=== PATIENT | female | born 1965 | race Caucasian/White ===

== ENCOUNTER → 2016-12-24 | Outpatient (CLI) | payer MEDICARE ==
--- NOTE | 2016-12-24 16:43 | RAD ---
Chest, 2 views, 12/24/2016: History: Shortness of breath No previous chest radiographs are available at this time for comparison purposes. There is a severe thoracolumbar kyphoscoliosis deforming the thoracic cage. A left-sided transvenous pacemaker is in place with 2 leads extending into the right heart. The heart appears to be within normal limits in size. The pulmonary vascularity is normal. There is an opacity in the left lower chest obscuring the hemidiaphragm on the frontal view. The patient's chest to form a and kyphosis may be contributing to this appearance. The lateral view suggests the presence of a lingular opacity, although a prominent epicardial fat pad may be contributing to this appearance. No pleural fluid is seen. IMPRESSION: 1. Chest deformity due to a marked thoracolumbar kyphoscoliosis. 2. Probable lingular infiltrate on the left. CT scanning would better define the findings, if clinically indicated.
[2016-12-25 00:57] LABS: HCO3 ABG 35 mmol/L (21-28); PCO2 ABG 58 mmHg (35-46); PO2 ABG 176 mmHg (75-108); SAT O2 ABG 99 % (92-99)
[2016-12-25 07:40] LABS: FIO2 ABG 44
== END | disposition home or self-care (01) ==
LOC: RT 14:30
PROVIDERS: ATTEND Internal Medicine Pulmonary Disease
DX: M95.4 Acquired deformity of chest and rib (principal); R06.02 Shortness of breath; Z95.0 Presence of cardiac pacemaker
CPT/HCPCS: 36600; 71020; 82805; 94620

== ENCOUNTER 2017-09-01 13:57 | Emergency (ER) | payer MEDICARE, OTHER | END 2017-09-01 15:45 | disposition home or self-care (01) | LOC: ER 13:57 | DX: Z43.0 Encounter for attention to tracheostomy (principal); Z88.0 Allergy status to penicillin | CPT/HCPCS: 31502; 99284 ==

== ENCOUNTER 2017-10-04 23:00 | Emergency (ER) | payer MEDICARE, OTHER ==
[2017-10-05 01:30] VITALS: BP 141/61
[2017-10-05] MEDS ORDERED: AZIT250T6 PO (02:25)
[2017-10-05 02:26] LABS: CLARITY,URINE CLEAR; COLOR,URINE YELLOW
[2017-10-05 02:27] LABS: AMORPHOUS SEDIMENT,UR PRESENT /HPF; BACTERIA,URINE 0 /HPF (0-FEW); BILIRUBIN,URINE NEGATIVE (NEG); NITRITE,URINE NEGATIVE (NEG); PH,URINE 5.5; PROTEIN,URINE NEGATIVE (NEG-TRACE); RED BLOOD COUNT 3.97 x10^6/uL (3.50-5.40); SQUAMOUS EPITHELIAL CELL,UR FEW /LPF; UROBILINOGEN,URINE 0.2 mg/dL (0.2 mg/dL)
[2017-10-05 02:28] LABS: BASO % 0 % (0-3); EOS # 0.3 x10^3/uL (0.0-0.7); EOS % 3 % (0-3); HEMATOCRIT 33.3 % (36.0-47.0); HEMOGLOBIN 10.7 g/dL (12.0-15.5); LYMPH # 1.2 x10^3/uL (1.0-4.8); LYMPH % 12 % (24-48); MEAN CORPUSCULAR HEMOGLOBIN 27 pg (25-35); MEAN CORPUSCULAR HGB CONC 32 g/dL (31-37); MEAN CORPUSCULAR VOLUME 84 fL (79-100); MONO # 1.1 x10^3/uL (0.0-1.1); MONO % 11 % (0-9); NEUT # 7.5 x10^3uL (1.8-7.7); NEUT % 75 % (31-73); PLATELET COUNT 241 x10^3/uL (140-400); RED CELL DISTRIBUTION WIDTH 16.7 % (11.5-14.5)
--- NOTE | 2017-10-05 03:55 | PHYS DOC ---
Past Medical History Past Medical History: Other Additional Past Medical Histor: trachea Past Surgical History: , Pacemaker, Other Additional Past Surgical Histo: tracheostomy, skin graft, Alcohol Use: Rarely Drug Use: None Adult General Chief Complaint Chief Complaint: SHORTNESS OF BREATH [facility] HPI Patient is a 52 year old female who presents with some change in mental status. The patient has a tracheostomy at baseline. She uses oxygen at home and does have a concentrator. The patient had an episode earlier today with the family perceive that she was not answering questions appropriately. They checked her equipment and found that her oxygen concentrator had been set at a lower setting than it was supposed to. They do have concerns that the patient was hypoxic. They contacted a nurse advice line and they were recommended to come to the emergency department. On arrival to the ER, the patient has no complaints. Her oxygen level is over 95% on her baseline oxygen delivery. She does endorse some vague complaints of chills over the last 48 hours. No cough. No urinary symptoms. She has otherwise been at baseline health. They're primarily concerned that her oxygen level was too low at home. Review of Systems Review of Systems Constitutional: Denies fever or chills Eyes: Denies change in visual acuity, redness, or eye pain HENT: Denies nasal congestion or sore throat Respiratory: Denies cough or shortness of breath Cardiovascular: No additional information not addressed in HPI GI: Denies abdominal pain, nausea, vomiting, bloody stools or diarrhea : Denies dysuria or hematuria Musculoskeletal: Denies back pain or joint pain Integument: Denies rash or skin lesions Neurologic: Denies headache, focal weakness or sensory changes Endocrine: Denies polyuria or polydipsia All other systems were reviewed and found to be within normal limits, except as documented in this note. Allergies Allergies Allergies Coded Allergies Type Severity Reaction Last Updated Verified Penicillins Allergy Mild hives 09/01/17 Yes Physical Exam Physical Exam Constitutional: Well developed, well nourished, chronically ill-appearing female but in no distress HENT: Normocephalic, atraumatic, bilateral external ears normal Eyes: PERRLA, EOMI, conjunctiva normal Neck: Normal range of motion, no tenderness Cardiovascular:Heart rate regular rhythm, no murmur Lungs & Thorax: Bilateral breath sounds clear to auscultation Abdomen: Bowel sounds normal, soft Skin: Warm, dry, no erythema, no rash Back: No tenderness, no CVA tenderness Extremities: No edema Neurologic: Alert and oriented X 3 Psychologic: Affect normal Current Patient Data Vital Signs Vital Signs Date Time Temp Pulse Resp B/P (MAP) Pulse Ox O2 Delivery O2 Flow Rate FiO2 10/05/17 01:30 66 18 141/61 (87) 99 Tracheal Collar 6.0 10/04/17 23:00 100.4 100.4 Lab Values Laboratory Tests Test 10/04/17 23:24 White Blood Count 10.0 x10^3/uL (4.0-11.0) Red Blood Count 3.97 x10^6/uL (3.50-5.40) Hemoglobin 10.7 g/dL (12.0-15.5) L Hematocrit 33.3 % (36.0-47.0) L Mean Corpuscular Volume 84 fL (79-100) Mean Corpuscular Hemoglobin 27 pg (25-35) Mean Corpuscular Hemoglobin Concent 32 g/dL (31-37) Red Cell Distribution Width 16.7 % (11.5-14.5) H Platelet Count 241 x10^3/uL (140-400) Neutrophils (%) (Auto) 75 % (31-73) H Lymphocytes (%) (Auto) 12 % (24-48) L Monocytes (%) (Auto) 11 % (0-9) H Eosinophils (%) (Auto) 3 % (0-3) Basophils (%) (Auto) 0 % (0-3) Neutrophils # (Auto) 7.5 x10^3uL (1.8-7.7) Lymphocytes # (Auto) 1.2 x10^3/uL (1.0-4.8) Monocytes # (Auto) 1.1 x10^3/uL (0.0-1.1) Eosinophils # (Auto) 0.3 x10^3/uL (0.0-0.7) Basophils # (Auto) 0.0 x10^3/uL (0.0-0.2) Urine Collection Type U cath Urine Color Yellow Urine Clarity Clear Urine pH 5.5 Urine Specific [place] 1.010 Urine Protein Negative mg/dL (NEG-TRACE) Urine Glucose (UA) Negative mg/dL (NEG) Urine Ketones (Stick) Negative mg/dL (NEG) Urine Blood Moderate (NEG) Urine Nitrite Negative (NEG) Urine Bilirubin Negative (NEG) Urine Urobilinogen Dipstick 0.2 mg/dL (0.2 mg/dL) Urine Leukocyte Esterase Moderate (NEG) Urine RBC 1-2 /HPF (0-2) Urine WBC 5-10 /HPF (0-4) Urine Squamous Epithelial Cells Few /LPF Urine Amorphous Sediment Present /HPF Urine Bacteria 0 /HPF (0-FEW) Urine Mucus Slight /LPF Laboratory Tests 10/04/17 23:24 EKG EKG [] Radiology/Procedures Radiology/Procedures [] Course & Med Decision Making Course & Med Decision Making Pertinent Labs and Imaging studies reviewed. (See chart for details) Was evaluated in the emergency Department during a downtime procedure. She had no complaints on arrival other than some vague complaints of chills over the last 48 hours. Because of this, a CBC was completed. There was no elevation of her white blood cell count. A catheterized urinalysis was also checked but did not reveal any infection. Chest x-ray was completed. There were some opacities bilaterally in the lung murphy although it is unclear if there were consolidations. The patient ultimately is discharged home. She is placed empirically on a Z-Daniel. She is advised to contact her primary care doctor or come back to the ER for any new or worsening symptoms. I did verify with the patient and her family that she does have a functioning oxygen concentrator at home. The machine had not malfunctioned. Rather, it was simply set to low. Dragon Disclaimer Dragon Disclaimer This electronic medical record was generated, in whole or in part, using a voice recognition dictation system. Departure Departure Impression: Primary Impression: Tracheostomy care Disposition: 01 HOME, SELF-CARE Condition: GOOD Referrals: NO PCP (PCP) Patient Instructions: Bronchitis, Gelw-vu-Lxou Scripts Azithromycin (AZITHROMYCIN TABLET) 250 Mg Tablet 1 PKG PO UD, #6 TAB Take 2 tablets on day one followed by one tablet daily until gone Prov: LISA VASQUEZ DO 10/05/17 LISA VASQUEZ DO Oct 05, 2017 03:55
--- NOTE | 2017-10-05 08:17 | RAD ---
PORTABLE CHEST 1V History: short of breath Comparison: December 24, 2016 Findings: Single view of the chest is submitted. Endotracheal tube tip terminates about 7.5 cm from the patricia. There is again left electronic cardiac device. Pericardial cardiac silhouette is enlarged. There is bibasilar airspace opacity, obscured right heart border. There is no pneumothorax. There is no significant dependent pleural fluid. Impression: 1. There is bibasilar airspace opacity which may be due to infiltrates/atelectasis/edema. There is endotracheal tube. Heart is enlarged. Electronically signed by: Marcellus Nielsen MD (10/05/2017 8:14 AM) [id number]
== END 2017-10-05 02:51 | disposition home or self-care (01) ==
LOC: ER 23:00
DX: R41.82 Altered mental status, unspecified (principal); Z93.0 Tracheostomy status; Z96.89 Presence of other specified functional implants
CPT/HCPCS: 36415; 71045; 81001; 85025; 87086; 99285